=== PATIENT | female | born 1995 | race African-American/Black ===

== ENCOUNTER 2018-04-25 10:47 | Emergency (ER) | payer MEDICAID ==
[~2018-04-25] VITALS: Ht 162.6 cm; Wt 75.3 kg
[2018-04-25 11:15] VITALS: BP 128/88
[2018-04-25] MEDS ORDERED: metroNIDAZOLE 500 MG TAB PO ONE (12:00)
== END 2018-04-25 12:15 | disposition home or self-care (01) ==
LOC: ER 10:47
DX: J02.9 Acute pharyngitis, unspecified (principal); N39.0 Urinary tract infection, site not specified; Z20.2 Contact with and (suspected) exposure to infections with a predominantly sexual mode of transmission

== ENCOUNTER 2019-01-20 13:44 | Emergency (ER) | payer MEDICAID ==
[~2019-01-20] VITALS: Ht 162.6 cm; Wt 72.6 kg
[2019-01-20 13:57] VITALS: BP 109/67
[2019-01-20] MEDS ORDERED: KETOROLAC TROMETH 60MG/2ML VIAL IM ONE (15:00)
== END 2019-01-20 15:59 | disposition home or self-care (01) ==
LOC: ER 13:44
DX: S83.92XA Sprain of unspecified site of left knee, initial encounter (principal); S83.91XA Sprain of unspecified site of right knee, initial encounter; V49.9XXA Car occupant (driver) (passenger) injured in unspecified traffic accident, initial encounter; Y93.89 Activity, other specified; Y92.89 Other specified places as the place of occurrence of the external cause; Y99.8 Other external cause status
CPT/HCPCS: 73562; 96372; 99283; J1885

== ENCOUNTER 2020-01-16 11:35 | Emergency (ER) | payer MEDICAID ==
[~2020-01-16] VITALS: Ht 162.6 cm; Wt 80.7 kg
[2020-01-16 12:00] VITALS: BP 102/66
[2020-01-16 13:02] LABS: Basophils # (auto) 0 10 ^3/uL (0-0.2); Basophils % (auto) 0.8 % (0.0-2.0); Eosinophils # (auto) 0.1 10 ^3/uL (0-0.8); Eosinophils % (auto) 1.2 % (0.0-7.0); Hematocrit 42.4 % (36.0-46.0); Hemoglobin 14.5 g/dL (12.2-16.2); Lymphocytes % (auto) 37.9 % (10.0-50.0); Mean Corpuscular Hemoglobin 31.4 pg (28.0-32.0); Mean Corpuscular Hgb Conc. 34.1 g/dL (32.0-36.0); Mean Corpuscular Volume 92.2 fL (80.0-100.0); Monocytes # (auto) 0.5 10 ^3/uL (0-1.3); Monocytes % (auto) 9.6 % (0.0-12.0); Neutrophils # (auto) 2.6 10 ^3/uL (1.6-8.6); Neutrophils % (auto) 50.5 % (37.0-80.0); Platelet Count (auto) 318 10^3/uL (140-450); Red Cell Distribution Width 12.6 % (11.8-14.3); White Blood Cell 5.2 10^3/uL (4.4-10.8)
[2020-01-16 13:17] LABS: Albumin 3.4 g/dL (3.4-5.0); BUN/Creatinine Ratio 10.5; Calcium 8.9 mg/dL (8.5-10.1)
[2020-01-16 13:22] LABS: Bilirubin, Total 0.4 mg/dL (0.2-1.0); Total Protein 7.1 g/dL (6.4-8.2)
[2020-01-16 14:02] LABS: Urine Bacteria FEW /hpf (None Seen); Urine Blood TRACE /uL (Negative); Urine Specific Gravity 1.007 (1.001-1.035); Urine WBC 1 /hpf (0 - 5)
== END 2020-01-16 15:57 | disposition home or self-care (01) ==
LOC: ER 11:35
DX: B34.9 Viral infection, unspecified (principal); F12.10 Cannabis abuse, uncomplicated; Z20.828 Contact with and (suspected) exposure to other viral communicable diseases
CPT/HCPCS: 36415; 71045; 80053; 81001; 83735; 84702; 85025; 87070; 87804; 87880

== ENCOUNTER 2020-03-15 11:26 | Emergency (ER) | payer MEDICAID ==
[~2020-03-15] VITALS: Ht 162.6 cm; Wt 79.8 kg
[2020-03-15 14:35] VITALS: BP 123/72
== END 2020-03-15 14:37 | disposition home or self-care (01) ==
LOC: ER 11:26
DX: J20.8 Acute bronchitis due to other specified organisms (principal); F17.210 Nicotine dependence, cigarettes, uncomplicated; Z20.828 Contact with and (suspected) exposure to other viral communicable diseases
CPT/HCPCS: 36415; 71045; 87426; 99284; C9803; U0003

== ENCOUNTER 2021-06-17 09:13 | Emergency (ER) | payer MEDICAID ==
[~2021-06-17] VITALS: Ht 162.6 cm; Wt 76.7 kg
[2021-06-17 09:37] VITALS: BP 116/75
[2021-06-17] MEDS ORDERED: IBUP800T27 PO (10:21)
[2021-06-17] MEDS ORDERED: TOBR0.3S OP (10:21)
== END 2021-06-17 10:24 | disposition home or self-care (01) ==
LOC: ER 09:13
DX: S00.83XA Contusion of other part of head, initial encounter (principal); S60.051A Contusion of right little finger without damage to nail, initial encounter; H10.32 Unspecified acute conjunctivitis, left eye; F17.210 Nicotine dependence, cigarettes, uncomplicated; Z79.2 Long term (current) use of antibiotics; Z79.1 Long term (current) use of non-steroidal anti-inflammatories (NSAID); Y04.2XXA Assault by strike against or bumped into by another person, initial encounter; Y93.89 Activity, other specified; Y92.89 Other specified places as the place of occurrence of the external cause; Y99.8 Other external cause status
CPT/HCPCS: 70450; 73130